=== PATIENT | male | born 1960 | race Caucasian/White ===

== ENCOUNTER 2022-08-20 07:11 | Day surgery (SDC) | payer BC ==
[~2022-08-20 07:11] MED LIST: DEXAMETHASONE SOD PHOSPHATE 4 MG/ML 1 ML VIAL IV PRN; FAMOTIDINE 20 MG/2 ML VIAL IV PRN; HYDROmorphone 0.5 MG/0.5 ML SYRINGE IVP PRN; LACTATED RINGERS 1,000 ML IV SCH; ONDANSETRON 4 MG/2 ML VIAL IVP PRN
[2022-08-20 07:31] VITALS: RESP 16
[2022-08-20] MEDS ORDERED: LACTATED RINGERS 1,000 ML IV ONE (07:40)
[2022-08-20] MEDS ORDERED: SUCCINYLCHOLINE CHLORIDE 200 MG/10 ML VIAL IV ONE (08:26)
[2022-08-20] MEDS ORDERED: LIDOCAINE 2% INJ 20 MG/ML (2 ML VIAL) ONE (08:26)
[2022-08-20] MEDS ORDERED: PROPOFOL 10 MG/ML 20 ML VIAL IV ONE (08:26)
[2022-08-20] MEDS ORDERED: MIDAZOLAM 2 MG/2 ML VIAL ONE (08:26)
[2022-08-20] MEDS ORDERED: fentaNYL (PF) 50 MCG/ML 2 ML AMP ONE (08:26)
--- NOTE | 2022-08-20 09:04 | P.OP ---
Date of Procedure: 08/20/22 Preoperative Diagnosis: Right tonsillar cyst Postoperative Diagnosis: Same Procedure(s) Performed: Excision right tonsillar cyst Anesthesia: GETA Estimated Blood Loss (ml): 0 Pathology: other (Right tonsillar lesion) Condition: stable Disposition: PACU Indications for Procedure: Is a 61-year-old white male who approximate 6 weeks ago noted a lesion in the right tonsillar area which was felt to be a cyst. The patient has had a foreign body sensation in this area when he swallows. Operative Findings: Approximate 10 x 7 mm cystic lesion right superior tonsillar fossa Description of Procedure: The patient was brought in the operative suite and placed in supine position. The patient underwent induction of general anesthesia with oral endotracheal intubation without difficulty. The patient was prepped and draped in the usual aseptic fashion. The McIvor mouth gag was placed. The soft palate was palpated and no submucous cleft was noted. The lesion was grasped with a long forcep and excised from the surrounding tissue grossly entirely using needlepoint electrocautery. Excellent hemostasis was noted. The patient was suctioned in oral gastric fashion. The McIvor mouth gag was removed. The patient was allowed to emerge from anesthesia having tolerated procedure well was extubated in the operating suite and transferred to the postoperative recovery area in satisfactory condition.
[2022-08-20 09:13] VITALS: TEMP 97
[2022-08-20 09:59] VITALS: BP 118/71; PULSE 66
== END 2022-08-20 10:48 | disposition home or self-care (01) ==
LOC: OR 07:11
PROVIDERS: ATTEND Otolaryngology
DX: J35.8 Other chronic diseases of tonsils and adenoids (principal); Z79.899 Other long term (current) drug therapy; Z83.3 Family history of diabetes mellitus; Z87.891 Personal history of nicotine dependence; Z86.59 Personal history of other mental and behavioral disorders
CPT/HCPCS: 88305; 42808; J2250; J0330; J1100; J2405; J3010; J2704; J2001